=== PATIENT | male | born 1965 | race Caucasian/White ===

== ENCOUNTER 2020-01-14 18:27 | Emergency (ER) | payer BC ==
[~2020-01-14] VITALS: Ht 175.3 cm; Wt 70.3 kg
[2020-01-14 18:27] VITALS: BP_SYST 128
[2020-01-14] MEDS ORDERED: NACL 0.9% 1,000 ML IV ONE (18:33)
[2020-01-14 18:45] VITALS: BP_SYST 128
[2020-01-14] MEDS ORDERED: ASPIRIN 81 MG TAB.CHEW PO ONE (18:45)
== END 2020-01-14 18:45 | disposition left against medical advice (07) ==
LOC: SED 18:27
DX: R07.89 Other chest pain (principal); R06.02 Shortness of breath; R20.0 Anesthesia of skin; Z53.21 Procedure and treatment not carried out due to patient leaving prior to being seen by health care provider

== ENCOUNTER 2021-07-25 17:34 | Emergency (ER) | payer BC ==
--- NOTE | 2021-07-26 06:55 | NUR ---
SEE DOWNTIME PAPERWORK
== END 2021-07-25 19:00 | disposition left against medical advice (07) ==
LOC: SED 17:34
DX: M25.519 Pain in unspecified shoulder (principal); Z53.21 Procedure and treatment not carried out due to patient leaving prior to being seen by health care provider